=== PATIENT | female | born 1950 | race Caucasian/White ===

== ENCOUNTER 2019-02-24 10:10 | Outpatient (CLI) | payer MEDICARE, OTHER ==
[~2019-02-24 10:10] MED LIST: ADV50250 IH; ALBU1.25; ALBU18HF2 IH; ASPI-1265 PO; ATOR40TA7 PO; CHOL2000 PO; CITA20TA28 PO; DICL100G15 TOP; DIPH-423 PO; FLUTICASONE; FURO-150 PO; GABA-532 PO; HYDR100T27 PO; INSU100V36 SQ; KEN0.1O TP; LANTUS SQ; LINA5TAB4 PO; LIPA1CAP29 PO; LISI1TAB28 PO; LORA-512 PO; MONT10TA21 PO; NORCO10T PO; NYST15OI14 TP; PANT40TA39 PO; TIOT18CA7 IH; TRAZ-251 PO
== END 2019-02-24 23:59 | disposition home or self-care (01) ==
LOC: VAS 10:10
PROVIDERS: ATTEND Nurse Practitioner
DX: M71.21 Synovial cyst of popliteal space [Baker], right knee (principal); J44.9 Chronic obstructive pulmonary disease, unspecified; I11.0 Hypertensive heart disease with heart failure; I50.9 Heart failure, unspecified; E11.9 Type 2 diabetes mellitus without complications; Z87.891 Personal history of nicotine dependence
CPT/HCPCS: 93971

== ENCOUNTER 2020-03-03 13:10 | Emergency (ER) | payer MEDICARE, OTHER ==
[~2020-03-03] VITALS: Ht 167.6 cm; Wt 143.1 kg
[~2020-03-03 13:10] MED LIST changes: -LISI1TAB28 PO; +LISI1TAB51 PO
[2020-03-03] MEDS ORDERED: furosemide 20MG tablet PO ONE (15:00)
--- NOTE | 2020-03-03 15:05 | NUR ---
NOTIFIED OF BG [id number]
[2020-03-03 15:13] LABS: BASOPHILS # (AUTO) 0.1 X10'3 (0-0.2); BASOPHILS % (AUTO) 0.9 % (0-1); EOSINOPHILS # (AUTO) 0.3 X10'3 (0-0.9); EOSINOPHILS % (AUTO) 3.7 % (0-6); HEMATOCRIT 25.8 % (35.0-45.0); HEMOGLOBIN 8.8 g/dl (12.0-16.0); LYMPHOCYTES # (AUTO) 1.5 X10'3 (1.1-4.8); LYMPHOCYTES % (AUTO) 21.6 % (21-51); MEAN CORPUSCULAR HEMOGLOBIN 28.6 PG (27.0-31.0); MEAN CORPUSCULAR VOLUME 84.2 FL (78-98); MEAN PLATELET VOLUME 7.2 FL (7.4-10.4); MONOCYTES # (AUTO) 0.6 X10'3 (0-0.9); MONOCYTES % (AUTO) 8.6 % (2-12); NEUTROPHILS # (AUTO) 4.5 X10'3 (1.8-7.7); NEUTROPHILS % (AUTO) 65.2 % (42-75); PLATELET COUNT 179 X10'3 (140-440); RED BLOOD COUNT 3.06 X10'6 (4.20-5.60); RED CELL DISTRIBUTION WIDTH 14.8 % (11.5-14.5); WHITE BLOOD COUNT 6.9 X10'3 (4.5-11.0)
[2020-03-03 15:29] LABS: ALANINE AMINOTRANSFERASE 16 U/L (12-78); ALBUMIN 2.9 G/DL (3.4-5.0); ALBUMIN/GLOBULIN RATIO 0.8 (1.1-1.5); ALKALINE PHOSPHATASE 106 IU/L (46-116); ANION GAP 9 (8-16); ASPARTATE AMINO TRANSFERASE 13 U/L (10-37); BILIRUBIN,TOTAL 0.3 MG/DL (0.1-1.0); BLOOD UREA NITROGEN 57 MG/DL (7-18); BUN/CREATININE RATIO 18.8 (6.6-38.0); CALCIUM 8.9 MG/DL (8.5-10.1); CHLORIDE 104 MMOL/L (99-107); CREATININE 3.04 MG/DL (0.40-0.90); GLUCOSE 65 MG/DL (70-104); POTASSIUM 5.1 MMOL/L (3.5-5.1); SODIUM 137 MMOL/L (135-145); TOTAL CARBON DIOXIDE 24.2 MMOL/L (24-32); TOTAL PROTEIN 6.7 G/DL (6.4-8.2); eGFR 15 ML/MIN
[2020-03-03] MEDS ORDERED: CEPH500C5 PO (16:20)
[2020-03-03 16:48] VITALS: BP 136/68
== END 2020-03-03 16:50 | disposition home or self-care (01) ==
LOC: ER 13:11
DX: L03.116 Cellulitis of left lower limb (principal); L03.115 Cellulitis of right lower limb; R60.0 Localized edema; G43.909 Migraine, unspecified, not intractable, without status migrainosus; I50.9 Heart failure, unspecified; E78.00 Pure hypercholesterolemia, unspecified; I12.9 Hypertensive chronic kidney disease with stage 1 through stage 4 chronic kidney disease, or unspecified chronic kidney disease; J44.9 Chronic obstructive pulmonary disease, unspecified; N18.9 Chronic kidney disease, unspecified; E11.22 Type 2 diabetes mellitus with diabetic chronic kidney disease; Z90.49 Acquired absence of other specified parts of digestive tract; Z90.710 Acquired absence of both cervix and uterus; Z98.890 Other specified postprocedural states; Z88.5 Allergy status to narcotic agent; Z88.8 Allergy status to other drugs, medicaments and biological substances; Z79.82 Long term (current) use of aspirin; Z79.4 Long term (current) use of insulin; Z79.899 Other long term (current) drug therapy
CPT/HCPCS: 36415; 80053; 82948; 83880; 85025; 93971; 99284

== ENCOUNTER 2021-01-01 08:58 | Day surgery (SDC) | payer MEDICARE, OTHER ==
[~2021-01-01] VITALS: Ht 167.6 cm; Wt 158.6 kg
[2021-01-01 09:35] VITALS: BP 151/58
[2021-01-01] MEDS ORDERED: normal saline 1000ml 1,000 ML IV PRN (09:35)
[2021-01-01] MEDS ORDERED: LOP25T PO (10:20)
[2021-01-01] MEDS ORDERED: GLIP10TA21 PO (10:20)
[2021-01-01] MEDS ORDERED: SITA100T15 PO (10:20)
[2021-01-01] MEDS ORDERED: FLUT9.9S (10:20)
[2021-01-01] MEDS ORDERED: heparin 1,000unit/ml 10ml vial 10 ML ONE (12:05)
[2021-01-01] MEDS ORDERED: fentaNYL/PF 50MCG/1 ML 2ML syringe ONE (12:06)
[2021-01-01] MEDS ORDERED: midazolam 1 mg/ML 2ml injection ONE (12:06)
[2021-01-01] MEDS ORDERED: LIDOcaine 1%/PF 5ML 10 MG/ML VIAL ONE (12:06)
[2021-01-01 12:49] VITALS: BP 152/53
[2021-01-01 13:00] VITALS: BP 174/78
[2021-01-01 13:15] VITALS: BP 151/84
[2021-01-01 13:30] VITALS: BP 106/82
== END 2021-01-01 13:50 | disposition home or self-care (01) ==
LOC: SSTAY O 08:58
PROVIDERS: ATTEND Radiology Vascular & Interventional Radiology
DX: E11.22 Type 2 diabetes mellitus with diabetic chronic kidney disease (principal); I13.2 Hypertensive heart and chronic kidney disease with heart failure and with stage 5 chronic kidney disease, or end stage renal disease; N18.6 End stage renal disease; I50.9 Heart failure, unspecified; G47.30 Sleep apnea, unspecified; J45.909 Unspecified asthma, uncomplicated; E78.5 Hyperlipidemia, unspecified; E66.9 Obesity, unspecified; Z68.43 Body mass index [BMI] 50.0-59.9, adult; Z90.710 Acquired absence of both cervix and uterus; Z98.890 Other specified postprocedural states; Z98.41 Cataract extraction status, right eye; Z98.42 Cataract extraction status, left eye; Z79.899 Other long term (current) drug therapy; Z79.4 Long term (current) use of insulin; Z88.5 Allergy status to narcotic agent; Z88.8 Allergy status to other drugs, medicaments and biological substances; F17.210 Nicotine dependence, cigarettes, uncomplicated
CPT/HCPCS: 36558; 76937; 77001; 82948; 99152; C1750; C1769; C1894; J1644; J2250; J3010; 99153; A9270